=== PATIENT | male | born 1975 | race Caucasian/White ===

== ENCOUNTER 2019-02-05 16:25 | Emergency (ER) | payer SELFPAY ==
[~2019-02-05] VITALS: Ht 175.3 cm; Wt 102.3 kg
[2019-02-05 16:29] VITALS: BP 143/98
[2019-02-05] MEDS ORDERED: NAPR-56 PO (17:27)
[2019-02-05] MEDS ORDERED: CYCL-1 PO (17:27)
== END 2019-02-05 17:41 | disposition home or self-care (01) ==
LOC: ER 16:26
DX: S06.0X0A Concussion without loss of consciousness, initial encounter (principal); S16.1XXA Strain of muscle, fascia and tendon at neck level, initial encounter; M62.838 Other muscle spasm; I10 Essential (primary) hypertension; Z79.899 Other long term (current) drug therapy; W22.8XXA Striking against or struck by other objects, initial encounter; Y93.89 Activity, other specified; Y92.89 Other specified places as the place of occurrence of the external cause; Y99.8 Other external cause status
CPT/HCPCS: 99284

== ENCOUNTER 2020-06-01 14:19 | Emergency (ER) | payer OTHER ==
[~2020-06-01] VITALS: Ht 177.8 cm; Wt 109.1 kg
[~2020-06-01 14:19] MED LIST: CYCL-1 PO; LIDOcaine 1% W/epiNEPHrine 1:200,000 10ml vial ONE
[2020-06-01 14:40] VITALS: BP 157/88
--- NOTE | 2020-06-01 15:28 | NUR ---
DARCI Garcia at bedside for injection of lidocaine.
== END 2020-06-01 16:55 | disposition home or self-care (01) ==
LOC: ER 14:19
DX: S61.216A Laceration without foreign body of right little finger without damage to nail, initial encounter (principal); R51.9 Headache, unspecified; I10 Essential (primary) hypertension; W22.8XXA Striking against or struck by other objects, initial encounter; Y93.89 Activity, other specified; Y92.89 Other specified places as the place of occurrence of the external cause; Y99.8 Other external cause status
CPT/HCPCS: 12002; 99282

== ENCOUNTER 2023-11-10 08:55 | Observation (INO) | payer OTHER ==
[2023-11-06 15:35] LABS: BILIRUBIN,URINE NEGATIVE (Neg); CLARITY,URINE SLIGHTLY CLOUDY (Clear); COLOR,URINE YELLOW (Yellow); GLUCOSE, URINE NEGATIVE (Neg); KETONES,URINE NEGATIVE (Neg); LEUKOCYTE ESTERASE ,URINE NEGATIVE (Neg); NITRITES, URINE NEGATIVE (Neg); OCCULT BLOOD,URINE NEGATIVE (Neg); PH,URINE 7.5 (4.8-8.0); PROTEIN,URINE NEGATIVE (Neg)
[2023-11-06 15:39] LABS: BASOPHILS % (AUTO) 0.3 % (0-1); EOSINOPHILS # (AUTO) 0.2 X10'3 (0-0.9); EOSINOPHILS % (AUTO) 3.1 % (0-6); LYMPHOCYTES # (AUTO) 1.6 X10'3 (1.1-4.8); LYMPHOCYTES % (AUTO) 28.9 % (21-51); MEAN CORPUSCULAR HEMOGLOBIN 30.3 PG (27.0-31.0); MEAN CORPUSCULAR VOLUME 89.1 FL (78-98); MEAN PLATELET VOLUME 7.2 FL (7.4-10.4); MONOCYTES # (AUTO) 0.7 X10'3 (0-0.9); MONOCYTES % (AUTO) 11.5 % (2-12); NEUTROPHILS # (AUTO) 3.2 X10'3 (1.8-7.7); NEUTROPHILS % (AUTO) 56.2 % (42-75); PRE OP HEMATOCRIT 47.9 % (42.0-52.0); PRE OP HEMOGLOBIN 16.3 g/dL (14.0-17.9); PRE OP PLATELET COUNT 230 X10'3 (140-440); PRE OP WHITE BLOOD COUNT 5.7 10'3 (4.8-10.8); RED BLOOD COUNT 5.38 X10'6 (4.70-6.10); RED CELL DISTRIBUTION WIDTH 12.1 % (11.5-14.5)
[2023-11-06 15:42] LABS: UA COLLECTION TYPE NON-SPECIFIED
[2023-11-06 15:43] LABS: BACTERIA,URINE NONE SEEN /HPF (Neg); MUCUS STRANDS FEW /LPF (Neg); SQUAMOUS EPITHELIAL CELL,UR FEW /LPF (FEW); WBC,URINE 0-4 /HPF (0-4)
[2023-11-06 15:51] LABS: ALBUMIN 3.9 G/DL (3.4-5.0); ALKALINE PHOSPHATASE 68 IU/L (46-116); BLOOD UREA NITROGEN 11 MG/DL (7-18); CALCIUM 9.4 MG/DL (8.5-10.1); CHLORIDE 102 MMOL/L (99-107); CREATININE 0.92 MG/DL (0.60-1.10); PRE OP ALT 41 U/L (30-65); PRE OP ANION GAP 10 (8-16); PRE OP AST 22 U/L (10-37); PRE OP BILIRUB, TOTAL 0.6 MG/DL (0.0-1.0); PRE OP GLUCOSE 92 MG/DL (70-104); PRE OP POTASSIUM 3.7 MMOL/L (3.4-5.1); PRE OP SODIUM 142 MMOL/L (135-145); TOTAL CARBON DIOXIDE 29.6 MMOL/L (24-32); eGFR 88 ML/MIN
[2023-11-10] VITALS (21 sets, daily range): BP systolic 124–155; BP diastolic 70–100; PULSE 76–98; RESP 14–18; TEMP 97.1–97.8; O2SAT 94–100
[~2023-11-10] VITALS: Ht 175.3 cm; Wt 100.2 kg
[2023-11-10] MEDS: cefazolin 2gm/D5W 100mL 100 ML IV ONE (05:30)
[~2023-11-10 08:55] MED LIST changes: +CELE-193 PO; -CYCL-1 PO; -LIDOcaine 1% W/epiNEPHrine 1:200,000 10ml vial ONE; +LOSA100T58 PO
[2023-11-10] MEDS: vancomycin 1,500 MG in NS 300ml IV soln IV ONE (09:23)
[2023-11-10] MEDS: famotidine 20mg tablet PO ONE (09:23)
[2023-11-10] MEDS: ringers solution, lacted 1,000 ML IV SCH ×2 (09:24→09:35)
[2023-11-10] MEDS ORDERED: proCHLORperazine 10 MG/2 ml inj IV PRN (09:35)
[2023-11-10] MEDS ORDERED: meperidine/PF 25mg/ml syringe IV PRN ×3 (09:35)
[2023-11-10] MEDS ORDERED: labetalol 20mg/4ml (5mg/ml) syringe IV PRN (09:35)
[2023-11-10] MEDS ORDERED: ondansetron/PF 4mg/2ml inj IV PRN ×2 (09:35→16:30)
[2023-11-10] MEDS ORDERED: morphine 4 MG/ML inj SYRINge IV PRN (09:35)
[2023-11-10] MEDS ORDERED: morphine 2 MG/ML inj. syringe IV PRN ×2 (09:35→16:30)
[2023-11-10] MEDS ORDERED: enalaprilat dihydrate 2.5mg/2ml vial IV PRN (09:35)
[2023-11-10] MEDS ORDERED: sevoflurane 250ml liquid IH ONE (12:22)
[2023-11-10] MEDS ORDERED: fentaNYL/PF 50MCG/1 ML 2ML syringe ONE (12:32)
[2023-11-10] MEDS ORDERED: MIDAZolam 1 MG/ML 5ML VIAL ONE (12:32)
[2023-11-10] MEDS ORDERED: LIDOcaine 1%/PF 5ML 10 MG/ML VIAL ONE (13:05)
[2023-11-10] MEDS ORDERED: propofol inj 20 ML IV ONE (13:05)
[2023-11-10] MEDS ORDERED: dexamethasone sod phosphate 4mg/ml inj. ONE (13:05)
[2023-11-10] MEDS ORDERED: BUPIVAcaine/PF 7.5mg/ml (0.75%) 10ml vial ONE (13:06)
[2023-11-10] MEDS: bacitracin 15gm ointment TP ONE (14:33)
[2023-11-10] MEDS ORDERED: bacitracin 15gm ointment TP ONE (14:37)
[2023-11-10] MEDS ORDERED: ondansetron/PF 4mg/2ml inj ONE (14:53)
[2023-11-10] MEDS ORDERED: acetaminophen 1,000mg/100ml IV 100 ML IV ONE (15:01)
[2023-11-10] MEDS: ROPIVAcaine 0.2%/PF PUMP/bolus 545 ML POPLITEAL SCH (15:13)
[2023-11-10] MEDS ORDERED: naloxone 0.4 mg/ml inj IV PRN (16:30)
[2023-11-10] MEDS ORDERED: HYDROcodone/acetaminophen 10/325mg tab PO PRN ×2 (16:30)
[2023-11-10] MEDS: vancomycin/NS 1 GM ADD-VANTAGE 250 ML IV SCH (17:26)
[2023-11-11 01:46] VITALS: BP 117/71; PULSE 101; RESP 18; TEMP 97.5; O2SAT 98
[2023-11-11 06:00] VITALS: BP 138/86; PULSE 82; RESP 16; TEMP 98.3; O2SAT 97
[2023-11-11 08:00] VITALS: RESP 16; O2SAT 97
[2023-11-11 10:00] VITALS: BP 117/68; PULSE 99; RESP 15; TEMP 98.2; O2SAT 97
[2023-11-11] MEDS: ROPIVAcaine 0.2% (10 MG/5 ML) BOLUS INJECTION POPLITEAL PRN (12:45)
== END 2023-11-11 12:59 | disposition home or self-care (01) ==
LOC: PAS 08:55 → ORTHO 4S 16:35
PROVIDERS: ADMIT Student in an Organized Health Care Education/Training Program; ATTEND Podiatrist Foot & Ankle Surgery
DX: M19.072 Primary osteoarthritis, left ankle and foot (principal); M25.372 Other instability, left ankle; M21.172 Varus deformity, not elsewhere classified, left ankle; G47.30 Sleep apnea, unspecified; I10 Essential (primary) hypertension; F41.8 Other specified anxiety disorders; F43.10 Post-traumatic stress disorder, unspecified; Z87.891 Personal history of nicotine dependence; Z79.899 Other long term (current) drug therapy
CPT/HCPCS: 27702; 36415; 71045; 73600; 76000; 80053; 81001; 82948; 85025; 93005; 96365; 96366; 97161; 97530; A6223; C1776; G0378; J0131; J0690; J1100; J2250; J2405; J2704; J2795; J3010; J3370; J3490; J7120; A4618; A6253; A6449; A7000